=== PATIENT | female | born 1980 | race African-American/Black ===

== ENCOUNTER 2018-11-22 10:04 | Emergency (ER) | payer OTHER ==
[~2018-11-22] VITALS: Ht 162.6 cm; Wt 67.3 kg
[2018-11-22] MEDS ORDERED: ORTH1TAB9 PO (10:09)
[2018-11-22] MEDS ORDERED: VITA50005 PO (10:09)
--- NOTE | 2018-11-22 11:01 | REP ---
Left lower extremity Duplex Doppler venous ultrasound: Real time compression and duplex Doppler interrogation of the left lower extremity deep venous system is performed. The left common femoral, superficial femoral and popliteal veins are fully compressible with transducer pressure and demonstrate normal spontaneous and phasic flow, without evidence of deep venous thrombosis. Impression: No evidence of deep venous thrombosis of the left lower extremity femoral popliteal venous system. Electronically Signed by Stephen Melchor MD 11/22/2018 10:53 A
[2018-11-22 11:14] VITALS: BP 104/65
== END 2018-11-22 11:16 | disposition home or self-care (01) ==
LOC: M ED 10:04
DX: R20.2 Paresthesia of skin (principal); Z79.3 Long term (current) use of hormonal contraceptives

== ENCOUNTER → 2019-01-08 | Outpatient (CLI) | payer OTHER ==
[~2019-01-08] MED LIST: ORTH1TAB9 PO; VITA50005 PO
--- NOTE | 2019-01-08 14:33 | REP ---
MRI RIGHT KNEE WITHOUT CONTRAST: HISTORY: Pain in the right knee. 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 Comparison radiographs are from January 06, 2019. TECHNIQUE: Axial, coronal, and sagittal imaging planes are utilized. T1- and T2-weighted scans are obtained in the usual fashion with and without fat saturation. MRI FINDINGS: Cortical and medullary bone signal intensity are normal. There is a moderate-sized joint effusion in the suprapatellar bursa. There is a Jones cyst in the posteromedial popliteal soft tissues which measures 4.8 cm in greatest craniocaudal span. There is some extra-articular soft tissue edema. Anterior and posterior cruciate ligaments appear intact. Patellar and quadriceps tendons are intact. There is no evidence of medial or lateral collateral ligament disruption. No medial or lateral meniscal tear is appreciated. The femoral trochlear fossa is somewhat shallow, but there is no patellofemoral malalignment seen. There is not MR evidence of patella breanna. There is a small suprapatellar plica medially. No articular cartilaginous defect is seen. IMPRESSION: Moderate-sized joint effusion with some extra-articular edema pattern, question synovitis. Jones cyst. No other evidence of internal derangement seen. Electronically Signed by Doe Kaur MD 01/08/2019 03:22 P
== END ==
LOC: M RAD 11:59
PROVIDERS: ATTEND Physician Assistant Medical
DX: M25.561 Pain in right knee (principal)